=== PATIENT | female | born 1955 | race Two or more races ===

== ENCOUNTER 2020-11-12 14:38 | Inpatient (IN) | payer MEDICARE, MEDICAID ==
[~2020-11-12] VITALS: Ht 162.6 cm; Wt 123.9 kg
[2020-11-12] MEDS ORDERED: SODIUM CHLORIDE 0.9% 1,000 ML IV ONE (15:00)
[2020-11-12] MEDS ORDERED: SODIUM CHLORIDE 0.9% 1,000 ML IVB ONE (15:00)
[2020-11-12] MEDS ORDERED: cefTRIAXone 1GM/50ML D5W 50 ML IV ONE (15:30)
[2020-11-12] MEDS ORDERED: ACETAMINOPHEN 325 MG TAB PO ONE (16:15)
[2020-11-12 16:49] LABS: Basophils # (auto) 0 10 ^3/uL (0-0.2); Basophils % (auto) 0.4 % (0.0-2.0); Eosinophils # (auto) 0 10 ^3/uL (0-0.8); Hematocrit 35.3 % (36.0-46.0); Hemoglobin 12.1 g/dL (12.2-16.2); Lymphocytes # (auto) 0.9 10 ^3/uL (0.4-5.4); Lymphocytes % (auto) 9.7 % (10.0-50.0); Mean Corpuscular Hemoglobin 28.8 pg (28.0-32.0); Mean Corpuscular Hgb Conc. 34.3 g/dL (32.0-36.0); Mean Corpuscular Volume 84.1 fL (80.0-100.0); Monocytes # (auto) 0.9 10 ^3/uL (0-1.3); Monocytes % (auto) 9.9 % (0.0-12.0); Neutrophils # (auto) 7.2 10 ^3/uL (1.6-8.6); Platelet Count (auto) 182 10^3/uL (140-450); Red Cell Distribution Width 15.8 % (11.8-14.3)
[2020-11-12 17:00] LABS: Urine Bacteria MOD /hpf (None Seen); Urine Blood 2+ /uL (Negative); Urine Specific Gravity 1.017 (1.001-1.035); Urine WBC 940 /hpf (0 - 5); Urine WBC Clumps PRESENT /hpf (None Seen)
[2020-11-12 17:09] LABS: Albumin 2.7 g/dL (3.4-5.0); Anion Gap 10 (5-15); Blood Urea Nitrogen 22 mg/dL (7-18); Carbon Dioxide 25 mmol/L (21-32); Chloride 102 mmol/L (98-107); Glucose 192 mg/dL (74-106); Potassium 4.1 mmol/L (3.5-5.1); Sodium 137 mmol/L (136-145)
[2020-11-12 17:11] LABS: Alanine Aminotransferase 59 U/L (13-56); Aspartate Aminotransferase 56 U/L (15-37); BUN/Creatinine Ratio 15.4; Blood Alcohol < 3.0 mg/dL (0-5); GFR African American 47 mL/min; GFR Non-African American 39 mL/min
[2020-11-12 17:15] LABS: Alkaline Phosphatase 127 U/L (45-117); Total Protein 6.9 g/dL (6.4-8.2)
[2020-11-12 17:16] LABS: Lactic Acid w/Reflex 2.7 mmol/L (0.4-2.0)
[2020-11-12 17:21] LABS: Amphetamine Screen, Urine NEGATIVE (NEGATIVE); Barbiturate Scree,Urine POSITIVE (NEGATIVE); Benzodiazephine Screen, Urine NEGATIVE (NEGATIVE); Cannabinoid Screen, Urine NEGATIVE (NEGATIVE); Cocaine Screen, Urine NEGATIVE (NEGATIVE); Opiate Scree,Urine NEGATIVE (NEGATIVE); Phencyclidine Screen, Urine NEGATIVE (NEGATIVE)
[2020-11-12 17:32] LABS: INR 1.13 (0.9-1.15); Partial Thromboplastin Time 25.8 sec (23.0-31.2)
[2020-11-12] MEDS ORDERED: DOCUSATE CALCIUM 240 MG CAP PO PRN (18:45)
[2020-11-12] MEDS ORDERED: MORPHINE SULF INJ 2 MG/ML SYRINGE 1ML IV PRN (18:45)
[2020-11-12] MEDS ORDERED: DEXTROSE (50%) 50ML SYRG IV PRN (18:45)
[2020-11-12] MEDS ORDERED: NITROGLYCERIN 0.4 MG SL TAB SL PRN (18:45)
[2020-11-12] MEDS ORDERED: ACETAMINOPHEN 500 MG TAB PO PRN (18:45)
[2020-11-12] MEDS ORDERED: SODIUM CHLORIDE 0.9% 2,000 ML IV ONE (18:45)
[2020-11-12] MEDS ORDERED: ONDANSETRON HCL 4 MG/2 ML VIAL IV PRN (18:45)
[2020-11-12] MEDS: InsuLIN REG 1unit/0.01ml Soln (100units/ml) SC SCH ×2 (20:00→23:28)
[2020-11-12] MEDS: ACCU-CHEK COMFORT CURVE STRIP VI SCH ×2 (20:00→23:28)
[2020-11-12 22:00] VITALS: BP 123/59
[2020-11-12 23:04] VITALS: BP 123/59
[2020-11-12] MEDS: MORPHINE SULFATE 4 MG/ML SYR/VIAL IV PRN (23:20)
[2020-11-12] MEDS: APIXABAN 5 MG TAB PO SCH (23:23)
[2020-11-12] MEDS: traZODone HCL 50 MG TAB PO SCH (23:23)
[2020-11-12] MEDS: PHENobarbital 32.4 MG TAB PO SCH (23:23)
[2020-11-12] MEDS: levETIRAcetam 500 MG TAB PO SCH (23:23)
[2020-11-12] MEDS: ALLOPURINOL 100 MG TAB PO SCH (23:24)
[2020-11-12] MEDS: DRONEDARONE HCL 400 MG TAB PO SCH (23:24)
[2020-11-12] MEDS: INSULIN LANTUS (GLARGINE) 1 /0.01ml (100units/ml) SC SCH (23:28)
[2020-11-13] MEDS: SODIUM CHLORIDE 0.9% 1,000 ML IV SCH ×3 (00:10→12:36)
[2020-11-13] MEDS: ACCU-CHEK COMFORT CURVE STRIP VI SCH ×5 (04:57→20:55)
[2020-11-13] MEDS: InsuLIN REG 1unit/0.01ml Soln (100units/ml) SC SCH ×5 (04:57→21:01)
[2020-11-13 05:00] VITALS: BP 143/91
[2020-11-13 05:44] LABS: Basophils # (auto) 0 10 ^3/uL (0-0.2); Basophils % (auto) 0.5 % (0.0-2.0); Eosinophils # (auto) 0 10 ^3/uL (0-0.8); Eosinophils % (auto) 0.1 % (0.0-7.0); Hematocrit 38.1 % (36.0-46.0); Hemoglobin 13.1 g/dL (12.2-16.2); Lymphocytes # (auto) 0.9 10 ^3/uL (0.4-5.4); Lymphocytes % (auto) 10.4 % (10.0-50.0); Mean Corpuscular Hgb Conc. 34.3 g/dL (32.0-36.0); Mean Corpuscular Volume 84.7 fL (80.0-100.0); Monocytes # (auto) 0.9 10 ^3/uL (0-1.3); Monocytes % (auto) 10.2 % (0.0-12.0); Neutrophils # (auto) 6.7 10 ^3/uL (1.6-8.6); Neutrophils % (auto) 78.8 % (37.0-80.0); Platelet Count (auto) 157 10^3/uL (140-450); Red Cell Distribution Width 16.2 % (11.8-14.3); White Blood Cell 8.5 10^3/uL (4.4-10.8)
[2020-11-13 06:04] LABS: Albumin 2.9 g/dL (3.4-5.0); BUN/Creatinine Ratio 16.5; Potassium 4.4 mmol/L (3.5-5.1)
[2020-11-13 06:07] LABS: Bilirubin, Total 1.4 mg/dL (0.2-1.0); Total Protein 7.4 g/dL (6.4-8.2)
[2020-11-13] MEDS ORDERED: VANCOMYCIN PER PHARMACY 0 MG IV SCH (06:15)
[2020-11-13] MEDS ORDERED: VANCOMYCIN 1GM/250ML 250 ML IV ONE (07:00)
[2020-11-13 08:52] VITALS: BP 108/49
[2020-11-13] MEDS: cefTRIAXone 1GM/50ML D5W 50 ML IV SCH (09:24)
[2020-11-13] MEDS: APIXABAN 5 MG TAB PO SCH ×2 (09:30→21:54)
[2020-11-13] MEDS: levETIRAcetam 500 MG TAB PO SCH ×2 (09:30→21:55)
[2020-11-13] MEDS: DRONEDARONE HCL 400 MG TAB PO SCH ×2 (09:30→21:55)
[2020-11-13] MEDS: PANTOPRAZOLE 40 MG TAB PO SCH (09:30)
[2020-11-13] MEDS: ACETAMINOPHEN 500 MG TAB PO PRN ×2 (11:31→18:35)
[2020-11-13 12:25] VITALS: BP 150/81
[2020-11-13 16:42] VITALS: BP 134/73
[2020-11-13] MEDS: MORPHINE SULFATE 4 MG/ML SYR/VIAL IV PRN (21:01)
[2020-11-13 21:16] VITALS: BP 144/62
[2020-11-13] MEDS: traZODone HCL 50 MG TAB PO SCH (21:54)
[2020-11-13] MEDS: PHENobarbital 32.4 MG TAB PO SCH (21:54)
[2020-11-13] MEDS: ALLOPURINOL 100 MG TAB PO SCH (21:55)
[2020-11-13] MEDS: INSULIN LANTUS (GLARGINE) 1 /0.01ml (100units/ml) SC SCH (21:59)
[2020-11-14] MEDS: ACCU-CHEK COMFORT CURVE STRIP VI SCH ×7 (00:27→23:47)
[2020-11-14] MEDS: InsuLIN REG 1unit/0.01ml Soln (100units/ml) SC SCH ×7 (00:31→23:48)
[2020-11-14] MEDS: SODIUM CHLORIDE 0.9% 1,000 ML IV SCH ×3 (00:54→20:45)
[2020-11-14] MEDS: VANCOMYCIN 1GM/250ML 250 ML IV SCH ×2 (00:56→20:15)
[2020-11-14] MEDS: MORPHINE SULFATE 4 MG/ML SYR/VIAL IV PRN ×4 (01:09→23:54)
[2020-11-14 05:35] VITALS: BP 148/83
[2020-11-14 08:00] VITALS: BP 159/87
[2020-11-14] MEDS: cefTRIAXone 1GM/50ML D5W 50 ML IV SCH (09:11)
[2020-11-14] MEDS: levETIRAcetam 500 MG TAB PO SCH ×2 (10:22→22:18)
[2020-11-14] MEDS: DRONEDARONE HCL 400 MG TAB PO SCH ×2 (10:22→22:19)
[2020-11-14] MEDS: APIXABAN 5 MG TAB PO SCH ×2 (10:22→22:18)
[2020-11-14] MEDS: PANTOPRAZOLE 40 MG TAB PO SCH (10:23)
[2020-11-14 12:00] VITALS: BP 150/75
[2020-11-14] MEDS: LABETALOL HCL 5 MG/ML 4ML SYRINGE IV PRN (15:20)
[2020-11-14 16:00] VITALS: BP 159/76
[2020-11-14] MEDS: Glucerna Carbsteady SHAKE Vanilla 8oz PO SCH (17:46)
[2020-11-14 22:05] VITALS: BP 149/73
[2020-11-14] MEDS: INSULIN LANTUS (GLARGINE) 1 /0.01ml (100units/ml) SC SCH (22:17)
[2020-11-14] MEDS: PHENobarbital 32.4 MG TAB PO SCH (22:18)
[2020-11-14] MEDS: traZODone HCL 50 MG TAB PO SCH (22:18)
[2020-11-14] MEDS: ALLOPURINOL 100 MG TAB PO SCH (22:19)
[2020-11-15] MEDS: ACCU-CHEK COMFORT CURVE STRIP VI SCH ×6 (04:06→23:43)
[2020-11-15] MEDS: InsuLIN REG 1unit/0.01ml Soln (100units/ml) SC SCH ×6 (04:08→23:45)
[2020-11-15 05:03] VITALS: BP 148/67
[2020-11-15] MEDS: MORPHINE SULFATE 4 MG/ML SYR/VIAL IV PRN ×2 (05:51→18:21)
[2020-11-15] MEDS: SODIUM CHLORIDE 0.9% 1,000 ML IV SCH ×2 (06:25→16:45)
[2020-11-15] MEDS: Glucerna Carbsteady SHAKE Vanilla 8oz PO SCH ×2 (08:20→18:16)
[2020-11-15] MEDS: cefTRIAXone 1GM/50ML D5W 50 ML IV SCH (08:50)
[2020-11-15 08:54] VITALS: BP 141/79
[2020-11-15] MEDS: DRONEDARONE HCL 400 MG TAB PO SCH (08:54)
[2020-11-15] MEDS: PANTOPRAZOLE 40 MG TAB PO SCH (08:54)
[2020-11-15] MEDS: APIXABAN 5 MG TAB PO SCH ×2 (08:54→21:53)
[2020-11-15] MEDS: levETIRAcetam 500 MG TAB PO SCH ×2 (08:54→21:52)
[2020-11-15 10:11] LABS: Basophils # (auto) 0 10 ^3/uL (0-0.2); Basophils % (auto) 0.7 % (0.0-2.0); Eosinophils # (auto) 0 10 ^3/uL (0-0.8); Eosinophils % (auto) 0.5 % (0.0-7.0); Hematocrit 31.1 % (36.0-46.0); Hemoglobin 10.7 g/dL (12.2-16.2); Lymphocytes # (auto) 0.9 10 ^3/uL (0.4-5.4); Lymphocytes % (auto) 16.5 % (10.0-50.0); Mean Corpuscular Hemoglobin 28.8 pg (28.0-32.0); Mean Corpuscular Hgb Conc. 34.3 g/dL (32.0-36.0); Mean Corpuscular Volume 83.9 fL (80.0-100.0); Monocytes # (auto) 0.8 10 ^3/uL (0-1.3); Monocytes % (auto) 14.6 % (0.0-12.0); Neutrophils # (auto) 3.8 10 ^3/uL (1.6-8.6); Neutrophils % (auto) 67.7 % (37.0-80.0); Platelet Count (auto) 162 10^3/uL (140-450); Red Blood Cells 3.71 10^6/uL (4.0-5.20); Red Cell Distribution Width 15.8 % (11.8-14.3); White Blood Cell 5.6 10^3/uL (4.4-10.8)
[2020-11-15 10:30] LABS: BUN/Creatinine Ratio 17.3; Potassium 3.9 mmol/L (3.5-5.1)
[2020-11-15] MEDS: MEROPENEM 1GM IVPB 100 ML IV SCH ×2 (11:00→19:31)
[2020-11-15] MEDS ORDERED: levoFLOXacin 500 MG TAB PO ONE (12:45)
[2020-11-15 13:00] VITALS: BP 155/81
[2020-11-15 16:00] VITALS: BP 153/75
[2020-11-15] MEDS: ACETAMINOPHEN 500 MG TAB PO PRN (20:14)
[2020-11-15] MEDS: INSULIN LANTUS (GLARGINE) 1 /0.01ml (100units/ml) SC SCH (21:52)
[2020-11-15] MEDS: ALLOPURINOL 100 MG TAB PO SCH (21:52)
[2020-11-15] MEDS: traZODone HCL 50 MG TAB PO SCH (21:52)
[2020-11-15] MEDS: PHENobarbital 32.4 MG TAB PO SCH (21:54)
[2020-11-15] MEDS: METOPROLOL SUCCINATE XL 50 MG TAB PO SCH (21:54)
[2020-11-15 22:15] VITALS: BP 144/72
[2020-11-16] MEDS: MORPHINE SULFATE 4 MG/ML SYR/VIAL IV PRN (01:05)
[2020-11-16] MEDS: SODIUM CHLORIDE 0.9% 1,000 ML IV SCH ×3 (03:06→22:21)
[2020-11-16] MEDS: MEROPENEM 1GM IVPB 100 ML IV SCH ×3 (03:09→18:43)
[2020-11-16] MEDS: ACCU-CHEK COMFORT CURVE STRIP VI SCH ×5 (04:17→20:48)
[2020-11-16] MEDS: InsuLIN REG 1unit/0.01ml Soln (100units/ml) SC SCH ×5 (04:19→20:55)
[2020-11-16 05:11] VITALS: BP 144/81
[2020-11-16] MEDS: Glucerna Carbsteady SHAKE Vanilla 8oz PO SCH ×2 (08:30→18:00)
[2020-11-16 08:38] VITALS: BP_SYST 124; BP_SYST 141; BP_DIAS 77; BP_DIAS 80
[2020-11-16] MEDS: PANTOPRAZOLE 40 MG TAB PO SCH (08:48)
[2020-11-16] MEDS: levETIRAcetam 500 MG TAB PO SCH ×2 (08:48→21:52)
[2020-11-16] MEDS: APIXABAN 5 MG TAB PO SCH ×2 (08:49→21:52)
[2020-11-16] MEDS: METOPROLOL SUCCINATE XL 50 MG TAB PO SCH ×2 (08:49→21:53)
[2020-11-16] MEDS: levoFLOXacin 500 MG TAB PO SCH (08:50)
[2020-11-16] MEDS ORDERED: ERTAPENEM SOD INJ 1 GM in SODIUM CHL 0.9% 50 ML IV SCH (10:00)
[2020-11-16 13:00] VITALS: BP 166/98
[2020-11-16] MEDS: LABETALOL HCL 5 MG/ML 4ML SYRINGE IV PRN (15:11)
[2020-11-16 17:10] VITALS: BP 149/70
[2020-11-16] MEDS: PHENobarbital 32.4 MG TAB PO SCH (21:51)
[2020-11-16] MEDS: traZODone HCL 50 MG TAB PO SCH (21:52)
[2020-11-16] MEDS: ALLOPURINOL 100 MG TAB PO SCH (21:53)
[2020-11-16] MEDS: INSULIN LANTUS (GLARGINE) 1 /0.01ml (100units/ml) SC SCH (21:54)
[2020-11-16 22:15] VITALS: BP 155/76
[2020-11-17] MEDS: ACCU-CHEK COMFORT CURVE STRIP VI SCH ×5 (00:18→16:00)
[2020-11-17] MEDS: InsuLIN REG 1unit/0.01ml Soln (100units/ml) SC SCH ×5 (00:24→16:00)
[2020-11-17] MEDS: MEROPENEM 1GM IVPB 100 ML IV SCH ×2 (02:53→11:00)
[2020-11-17 05:14] VITALS: BP 147/99
[2020-11-17] MEDS: Glucerna Carbsteady SHAKE Vanilla 8oz PO SCH (08:17)
[2020-11-17] MEDS: APIXABAN 5 MG TAB PO SCH (08:29)
[2020-11-17] MEDS: PANTOPRAZOLE 40 MG TAB PO SCH (08:29)
[2020-11-17] MEDS: levoFLOXacin 500 MG TAB PO SCH (08:30)
[2020-11-17] MEDS: METOPROLOL SUCCINATE XL 50 MG TAB PO SCH (08:30)
[2020-11-17] MEDS: levETIRAcetam 500 MG TAB PO SCH (08:30)
[2020-11-17 09:00] VITALS: BP 159/75
[2020-11-17] MEDS: SODIUM CHLORIDE 0.9% 1,000 ML IV SCH (12:10)
[2020-11-17 13:00] VITALS: BP 161/83
== END 2020-11-17 17:09 | DRG 871 ==
LOC: EDBD 14:38 → ER 14:38 → TELE 18:39 → TELE-WESTW 21:29
PROVIDERS: ADMIT Family Medicine; ATTEND Family Medicine
DX: A41.51 Sepsis due to Escherichia coli [E. coli] (principal); G93.41 Metabolic encephalopathy; J96.01 Acute respiratory failure with hypoxia; Z68.42 Body mass index [BMI] 45.0-49.9, adult; N39.0 Urinary tract infection, site not specified; Z20.822 Contact with and (suspected) exposure to COVID-19; E78.5 Hyperlipidemia, unspecified; E86.0 Dehydration; I10 Essential (primary) hypertension; Z66 Do not resuscitate; E11.65 Type 2 diabetes mellitus with hyperglycemia; I48.91 Unspecified atrial fibrillation; E11.40 Type 2 diabetes mellitus with diabetic neuropathy, unspecified; G40.909 Epilepsy, unspecified, not intractable, without status epilepticus; B19.20 Unspecified viral hepatitis C without hepatic coma; E66.9 Obesity, unspecified; K21.9 Gastro-esophageal reflux disease without esophagitis; F17.200 Nicotine dependence, unspecified, uncomplicated; F32.9 Major depressive disorder, single episode, unspecified; D64.9 Anemia, unspecified; G47.00 Insomnia, unspecified; F41.9 Anxiety disorder, unspecified; H54.61 Unqualified visual loss, right eye, normal vision left eye; M10.9 Gout, unspecified; Z79.01 Long term (current) use of anticoagulants; Z79.899 Other long term (current) drug therapy; Z82.49 Family history of ischemic heart disease and other diseases of the circulatory system; Z83.3 Family history of diabetes mellitus; Z87.81 Personal history of (healed) traumatic fracture; Z87.820 Personal history of traumatic brain injury; E11.21 Type 2 diabetes mellitus with diabetic nephropathy
CPT/HCPCS: 36415; 70450; 71045; 80048; 80053; 80184; 80307; 80320; 81001; 82962; 83605; 83880; 84443; 84484; 85025; 85610; 85730; 87040; 87077; 87081; 87086; 87088; 87186; 87426; 93005; 95819; 96361; 96365; G0378; J0696; J1815; J2185; J3490

== ENCOUNTER → 2021-01-07 | Outpatient (CLI) | payer MEDICARE, MEDICAID ==
[~2021-01-07] MED LIST: ALLO100T PO; APIX5TAB PO; ATOR20TA50 PO; BISA10SU45 RE; CRAN450T PO; DOCU100T15 PO; GABA300C10 PO; INSLANTI SC; INSREG3 SC; LEVE500T32 PO; LOSA-69 PO
[2021-01-07 11:28] LABS: Basophils # (auto) 0 10 ^3/uL (0-0.2); Basophils % (auto) 0.7 % (0.0-2.0); Eosinophils # (auto) 0.2 10 ^3/uL (0-0.8); Eosinophils % (auto) 2.7 % (0.0-7.0); Hematocrit 40.1 % (36.0-46.0); Hemoglobin 14.1 g/dL (12.2-16.2); Lymphocytes # (auto) 2.3 10 ^3/uL (0.4-5.4); Lymphocytes % (auto) 33.5 % (10.0-50.0); Mean Corpuscular Hemoglobin 29.4 pg (28.0-32.0); Mean Corpuscular Hgb Conc. 35.1 g/dL (32.0-36.0); Mean Corpuscular Volume 83.7 fL (80.0-100.0); Monocytes # (auto) 0.5 10 ^3/uL (0-1.3); Monocytes % (auto) 7.6 % (0.0-12.0); Neutrophils # (auto) 3.7 10 ^3/uL (1.6-8.6); Neutrophils % (auto) 55.5 % (37.0-80.0); Platelet Count (auto) 206 10^3/uL (140-450); Red Blood Cells 4.79 10^6/uL (4.0-5.20); Red Cell Distribution Width 15.5 % (11.8-14.3); White Blood Cell 6.8 10^3/uL (4.4-10.8)
[2021-01-07 11:30] VITALS: BP 145/47
[2021-01-07 11:41] LABS: INR 1.02 (0.9-1.15); Partial Thromboplastin Time 32.1 sec (23.0-31.2)
[2021-01-07 11:43] LABS: Calcium 8.5 mg/dL (8.5-10.1)
[2021-01-07 11:45] VITALS: BP 131/47
== END | disposition home or self-care (01) ==
LOC: Rad HDHVI 10:41
PROVIDERS: ATTEND Internal Medicine
DX: Z01.812 Encounter for preprocedural laboratory examination (principal); I70.209 Unspecified atherosclerosis of native arteries of extremities, unspecified extremity; M48.56XA Collapsed vertebra, not elsewhere classified, lumbar region, initial encounter for fracture; M85.80 Other specified disorders of bone density and structure, unspecified site
CPT/HCPCS: 36415; 71046; 80048; 85025; 85049; 85610; 85730; 93005; G0463

== ENCOUNTER 2021-01-12 06:44 | Day surgery (SDC) | payer MEDICARE, MEDICAID ==
[~2021-01-12] VITALS: Ht 162.6 cm; Wt 123.8 kg
[2021-01-12] MEDS ORDERED: IODIXANOL 320MG/ML 100ML BTL IV ONE (07:46)
[2021-01-12] MEDS ORDERED: LIDOCAINE 2%HCL (LOCAL ANESTH.) INJ 20ML MDV ONE ×2 (07:46→11:06)
[2021-01-12] MEDS ORDERED: HEPARIN IN NS 1000Units/500mL 1,500 ML ONE (07:47)
[2021-01-12] MEDS ORDERED: ANGIOMAX 250 MG VIAL IV ONE (10:48)
[2021-01-12] MEDS ORDERED: fentaNYL CITRATE 100 MCG/2 ML VL ONE (10:48)
[2021-01-12] MEDS ORDERED: MIDAZOLAM HCL 1MG/1ML-2 ML VIAL ONE ×2 (10:48→11:19)
[2021-01-12] MEDS ORDERED: SODIUM CHL 0.9% 0 ML ONE (10:49)
[2021-01-12] MEDS ORDERED: ONDANSETRON HCL 4 MG/2 ML VIAL IV PRN (12:15)
[2021-01-12] MEDS ORDERED: ACETAMINOPHEN 500 MG TAB PO PRN (12:15)
[2021-01-12] MEDS ORDERED: SODIUM CHLOR 0.9% PF (SALINE LOCK) 10ML VIAL/SYR IV SCH (14:00)
== END 2021-01-12 14:25 ==
LOC: CATH 06:44
PROVIDERS: ATTEND Internal Medicine
DX: I73.9 Peripheral vascular disease, unspecified (principal); Z83.3 Family history of diabetes mellitus; Z20.822 Contact with and (suspected) exposure to COVID-19; Z98.890 Other specified postprocedural states; Z79.899 Other long term (current) drug therapy
CPT/HCPCS: 36415; 75716; 87426; C1769; C1894; J1644; J2250; J3010; J7030; Q9967; 99152